=== PATIENT | male | born 1975 | race Caucasian/White ===

== ENCOUNTER 2017-11-02 23:02 | Inpatient (IN) ==
--- NOTE | 2017-11-02 23:31 | Emergency Department Note ---
Disposition Clinical Impression: Suicidal ideation Disposition: Still a Patient Condition: Fair Referrals: Lex Moreno MD [Primary Care Provider] - Forms: ED Satisfaction Letter Time of Disposition: 06:52 General Adult HPI - General Chief complaint: ED Psychiatric Symptoms Stated complaint: SI Time Seen by Provider: 11/02/17 23:04 Source: patient Mode of arrival: ambulatory Limitations: no limitations Nursing Notes Reviewed: Yes Vital Signs Reviewed: Yes - History of Present Illness HPI Narrative: Patient is a 42-year-old male with no pertinent past medical history of presents for evaluation of suicidal ideation. The patient states that 2 years ago he had a best friend that committed suicide with a shotgun and he had similar thoughts tonight. Patient is also a of or. He states that he is tried to deal with these motions over the past 2 years and they have overtaken of any wanted to take his life tonight. States that he sent his family members and friends goodbye letters and one of his friends called the police which came to his house and then he was brought in by squad. Patient states that he would like to seek help. He has not been seen by psychiatrist in the past. Denies any drug use or alcohol use. Denies any auditory or visual hallucinations. States he feels very anxious. Pain Scale: 0 - Related Data Previous Rx's Medication Instructions Recorded Naproxen [Naprosyn] 500 mg PO BID PRN #20 tablet 07/21/17 Allergies Allergy/AdvReac Type Severity Reaction Status Date / Time No Known Allergies Allergy Verified 11/02/17 23:05 All systems ED: reviewed and negative except as stated. Review of Systems: As Per HPI Constitutional: Denies: fever, chills Cardiovascular: Denies: chest pain, palpitations Respiratory: Denies: cough, dyspnea Gastrointestinal: Denies: abdominal pain, nausea, vomiting Genitourinary: Denies: urgency, dysuria Musculoskeletal: Denies: back pain, neck pain Integumentary: Denies: rash Neurological: Denies: headache, weakness, numbness, paresthesias, confusion Psychiatric: Reports: anxiety, depression, suicidal thoughts. Denies: homicidal thoughts, auditory hallucinations, visual hallucinations Past Medical History - Past Medical History Attestation: Yes The following information was validated with the patient. Medical history: Reports: hypertension Surgical history: Reports: appendectomy, cholecystectomy, orthopedic, other Psychiatric history: Reports: prior suicide attempt - Social History Smoking Status: Never smoker Smokeless Tobacco Status: Yes Alcohol use: Reports: none Drug use: Reports: none Physical Exam CONSTITUTIONAL: Alert and oriented X3, well-nourished. Patient is tearful on exam. Speaks in full sentences. HEAD: Normocephalic; atraumatic. EYES: PERRL, no scleral icterus. NOSE: The nose is normal in appearance without rhinorrhea RESP: Normal chest excursion with respiration; breath sounds clear and equal bilaterally; no wheezes, rhonchi, or rales CARD: Regular rhythm, without murmurs, rub or gallop ABD: Non-distended; non-tender, soft,without rigidity, rebound or guarding SKIN: Normal for age and race; warm and dry; no apparent lesions PSYCH: Patient is anxious on exam, tearful. Admits to SI with plan. Denies HI. Denies auditory or visual hallucinations. Normal affect. - General General appearance: alert Course Course Narrative: Patient will undergo medical clearance for evaluation by psychiatry. He stable at this time. - Reevaluation(s) Reevaluation #1: Patient's alcohol level was too high for medical clearance for psychiatric evaluation at this time. Patient is resting comfortably in his room. We will recheck his L Manoj level at 5:00 AM. Once the level is below 80, psychiatry will see him. Time: 02:13 Reevaluation #2: Repeat alcohol was less than 80. Patient to be seen by 1A at this time. Time: 06:39 Vital Signs Temperature 97.6 F 11/02/17 23:03 Pulse Rate 84 11/02/17 23:03 Respiratory Rate 16 11/02/17 23:03 Blood Pressure 134/83 11/02/17 23:03 O2 Sat by Pulse Oximetry 95 11/02/17 23:03 Temperature 97.5 F L 11/03/17 03:09 Pulse Rate 87 11/03/17 03:09 Respiratory Rate 18 11/02/17 23:20 Blood Pressure 114/71 11/03/17 03:09 O2 Sat by Pulse Oximetry 99 11/03/17 03:09 Oxygen Delivery Oxygen Delivery Room Air Medical Decision Making - Medical Records Medical records reviewed: Yes I reviewed the patient's medical records. - Lab Data Result diagrams: 11/02/17 23:32 11/02/17 23:32 Lab Results 11/02/17 11/02/17 11/02/17 Range/Units 23:32 23:32 23:46 WBC 8.0 (4.3-11.1) K/mcL RBC 5.14 (4.19-5.50) M/mcL Hgb 16.7 (12.9-16.9) g/dL Hct 46.0 (37.5-50.1) % MCV 89.5 (83.0-100.0) fL MCH 32.5 (28.0-33.3) pg MCHC 36.3 H (31.6-35.5) g/dL RDW 12.2 (11.5-14.5) % Plt Count 240 (140-400) K/mcL MPV 9.8 (9.4-12.4) fL Immature Gran % 0.4 (0-4) % Seg Neutrophils % 51.4 % Lymphocytes % 39.0 % Monocytes % 4.6 % Eosinophils % 3.7 % Basophils % 0.9 % Neutrophils # 4.1 (1.6-8.9) K/mcL Lymphocytes # 3.1 (0.6-4.6) K/mcL Monocytes # 0.4 (0.0-1.3) K/mcL Eosinophils # 0.3 (0.0-0.6) K/mcL Basophils # 0.1 (0.0-0.2) K/mcL Sodium 140 (136-145) mEq/L Potassium 4.1 (3.5-5.1) mEq/L Chloride 106 (98-107) mEq/L Carbon Dioxide 23 (23-29) mEq/L BUN 12 (6-20) mg/dL Creatinine 1.23 (0.70-1.30) mg/dL Est GFR ( Amer) > 60 (> 60) Est GFR (Non-Af Amer) > 60 (> 60) BUN/Creatinine Ratio 10 (6-26) Glucose 276 H (70-105) mg/dL Calculated Osmolality 300 (280-300) Calcium 8.9 (8.6-10.3) mg/dL Urine Color (Yellow) Urine Clarity (Clear) Urine pH (5.0-8.0) pH Units Ur Specific [place] (1.010-1.025) Urine Protein (Neg-Trace) mg/dL Urine Glucose (UA) (Normal) mg/dL Urine Ketones (Negative) mg/dL Urine Blood (Negative) Urine Nitrite (Negative) Urine Bilirubin (Negative) Urine Urobilinogen (Normal) mg/dL Ur Leukocyte Esterase (Negative) Salicylates < 2.5 L (15.0-30.0) mg/dL Urine Opiates Screen Negative (Ajrggf=307) ng/mL Acetaminophen < 10 L (10-20) mcg/mL Ur Barbiturates Screen Negative (Trwocx=403) ng/mL Ur Phencyclidine Scrn Negative (Cutoff=25) ng/mL Ur Amphetamines Screen Negative (Zfixlo=0992) ng/mL U Benzodiazepines Scrn Negative (Efdwec=860) ng/mL Urine Cocaine Screen Negative (Cutoff= 300) ng/mL U Marijuana (THC) Screen Negative (Cutoff = 50) ng/mL Ur Drug Screen Interp See Below Ethyl Alcohol 189 H (Less than 10) mg/dL 11/02/17 11/03/17 Range/Units 23:50 05:52 WBC (4.3-11.1) K/mcL RBC (4.19-5.50) M/mcL Hgb (12.9-16.9) g/dL Hct (37.5-50.1) % MCV (83.0-100.0) fL MCH (28.0-33.3) pg MCHC (31.6-35.5) g/dL RDW (11.5-14.5) % Plt Count (140-400) K/mcL MPV (9.4-12.4) fL Immature Gran % (0-4) % Seg Neutrophils % % Lymphocytes % % Monocytes % % Eosinophils % % Basophils % % Neutrophils # (1.6-8.9) K/mcL Lymphocytes # (0.6-4.6) K/mcL Monocytes # (0.0-1.3) K/mcL Eosinophils # (0.0-0.6) K/mcL Basophils # (0.0-0.2) K/mcL Sodium (136-145) mEq/L Potassium (3.5-5.1) mEq/L Chloride (98-107) mEq/L Carbon Dioxide (23-29) mEq/L BUN (6-20) mg/dL Creatinine (0.70-1.30) mg/dL Est GFR ( Amer) (> 60) Est GFR (Non-Af Amer) (> 60) BUN/Creatinine Ratio (6-26) Glucose (70-105) mg/dL Calculated Osmolality (280-300) Calcium (8.6-10.3) mg/dL Urine Color Yellow (Yellow) Urine Clarity Clear (Clear) Urine pH 5.5 (5.0-8.0) pH Units Ur Specific [place] 1.026 H (1.010-1.025) Urine Protein Negative (Neg-Trace) mg/dL Urine Glucose (UA) >=1000 H (Normal) mg/dL Urine Ketones 15 H (Negative) mg/dL Urine Blood Negative (Negative) Urine Nitrite Negative (Negative) Urine Bilirubin Negative (Negative) Urine Urobilinogen Normal (Normal) mg/dL Ur Leukocyte Esterase Negative (Negative) Salicylates (15.0-30.0) mg/dL Urine Opiates Screen (Zlthru=518) ng/mL Acetaminophen (10-20) mcg/mL Ur Barbiturates Screen (Ttumxo=391) ng/mL Ur Phencyclidine Scrn (Cutoff=25) ng/mL Ur Amphetamines Screen (Gelitm=0536) ng/mL U Benzodiazepines Scrn (Oyhlet=610) ng/mL Urine Cocaine Screen (Cutoff= 300) ng/mL U Marijuana (THC) Screen (Cutoff = 50) ng/mL Ur Drug Screen Interp Ethyl Alcohol 45 H (Less than 10) mg/dL S.B.A.R. - S.B.A.R. Situation: Demographics, MOA Background: Presenting Complaint, Relevant PMH, Meds, & Allergies Assessment: Vital Signs, Course and respsone to treatment, Exam Concerns, Patient/Family Expectation, Pertinant Lab Results, Outstanding Labs Recommendation: Barrier(s) to disposition, Recommendation based on pending studies, treatments, or consults S.B.A.R. Report Given to: Gus S.B.A.RRyan Repor Time: 06:52
[2017-11-02] MEDS ORDERED: *HR* LORazepam 1 MG TABLET PO ONE (23:55)
[2017-11-03 00:02] LABS: Acetaminophen < 10 mcg/mL (10-20); BUN/Creatinine Ratio 10 (6-26); Blood Urea Nitrogen 12 mg/dL (6-20); Calcium 8.9 mg/dL (8.6-10.3); Carbon Dioxide 23 mEq/L (23-29); Chloride 106 mEq/L (98-107); Ethanol 189 mg/dL (Less than 10); Glucose 276 mg/dL (70-105); Osmolality,Calculated 300 (280-300); Potassium 4.1 mEq/L (3.5-5.1); Salicylate < 2.5 mg/dL (15.0-30.0); Sodium 140 mEq/L (136-145); eGFR For African Americans > 60 (> 60); eGFR For Non-African Americans > 60 (> 60)
[2017-11-03 00:11] LABS: Amphetamine Screen,Urine Negative ng/mL (Cutoff=1000); Barbiturate Screen,Urine Negative ng/mL (Cutoff=200); Benzodiazepines Screen,Urine Negative ng/mL (Cutoff=200); Cannabinoid Screen,Urine Negative ng/mL (Cutoff = 50); Cocaine Screen,Urine Negative ng/mL (Cutoff= 300); Opiate Screen,Urine Negative ng/mL (Cutoff=300); Phencyclidine Screen,Urine Negative ng/mL (Cutoff=25)
[2017-11-03 00:14] LABS: Bilirubin,Urine Negative (Negative); Blood,Urine Negative (Negative); Clarity,Urine Clear (Clear); Color,Urine Yellow (Yellow); Glucose,Urine (UA) >=1000 mg/dL (Normal); Ketones,Urine 15 mg/dL (Negative); Leukocyte Esterase,Urine Negative (Negative); Nitrite,Urine Negative (Negative); PH,Urine 5.5 pH Units (5.0-8.0); Protein,Urine Negative (Neg-Trace); Specific Gravity,Urine 1.026 (1.010-1.025); Urobilinogen,Urine Normal (Normal)
[2017-11-03 00:21] LABS: Basophils # 0.1 K/mcL (0.0-0.2); Basophils % 0.9 %; Eosinophils # 0.3 K/mcL (0.0-0.6); Eosinophils % 3.7 %; Hemoglobin 16.7 g/dL (12.9-16.9); Immature Granulocytes % 0.4 % (0-4); Lymphocytes # 3.1 K/mcL (0.6-4.6); Mean Corpuscular HGB Conc 36.3 g/dL (31.6-35.5); Mean Corpuscular Hemoglobin 32.5 pg (28.0-33.3); Mean Corpuscular Volume 89.5 fL (83.0-100.0); Mean Platelet Volume 9.8 fL (9.4-12.4); Monocytes # 0.4 K/mcL (0.0-1.3); Monocytes % 4.6 %; Neutrophils # 4.1 K/mcL (1.6-8.9); Platelet Count 240 K/mcL (140-400); Red Blood Count 5.14 M/mcL (4.19-5.50); Red Cell Distribution Width 12.2 % (11.5-14.5); Segmented Neutrophils % 51.4 %
--- NOTE | 2017-11-03 03:30 | Emergency Department Note ---
Disposition Clinical Impression: Suicidal ideation Alcohol intoxication Qualifiers: Complication of substance-induced condition: uncomplicated Qualified Code(s): F10.920 - Alcohol use, unspecified with intoxication, uncomplicated Disposition: Still a Patient Condition: Fair General Adult HPI - General Chief complaint: ED Psychiatric Symptoms Stated complaint: SI Time Seen by Provider: 11/02/17 23:04 Source: patient Mode of arrival: ambulatory Limitations: no limitations Nursing Notes Reviewed: Yes Vital Signs Reviewed: Yes - History of Present Illness Pain Scale: 0 - Related Data Home Medications Medication Instructions Recorded Confirmed No Known Home Drugs 11/03/17 11/03/17 Allergies Allergy/AdvReac Type Severity Reaction Status Date / Time No Known Allergies Allergy Verified 11/02/17 23:05 Constitutional: Denies: fever, chills Cardiovascular: Denies: chest pain, palpitations Respiratory: Denies: cough, dyspnea Gastrointestinal: Denies: abdominal pain, nausea, vomiting Genitourinary: Denies: urgency, dysuria Musculoskeletal: Denies: back pain, neck pain Integumentary: Denies: rash Neurological: Denies: headache, weakness, numbness, paresthesias, confusion Psychiatric: Reports: anxiety, depression, suicidal thoughts. Denies: homicidal thoughts, auditory hallucinations, visual hallucinations Past Medical History - Past Medical History Medical history: Reports: hypertension Surgical history: Reports: appendectomy, cholecystectomy, orthopedic, other Psychiatric history: Reports: prior suicide attempt - Social History Smoking Status: Never smoker Smokeless Tobacco Status: Yes Alcohol use: Reports: none Drug use: Reports: none Physical Exam - General Limitations: no limitations General appearance: alert Course Vital Signs Temperature 97.6 F 11/02/17 23:03 Pulse Rate 84 11/02/17 23:03 Respiratory Rate 16 11/02/17 23:03 Blood Pressure 134/83 11/02/17 23:03 O2 Sat by Pulse Oximetry 95 11/02/17 23:03 Temperature 97.5 F L 11/03/17 03:09 Pulse Rate 87 11/03/17 03:09 Respiratory Rate 18 11/02/17 23:20 Blood Pressure 114/71 11/03/17 03:09 O2 Sat by Pulse Oximetry 99 11/03/17 03:09 Oxygen Delivery Oxygen Delivery Room Air Medical Decision Making - Lab Data Result diagrams: 11/02/17 23:32 11/02/17 23:32 Lab Results 11/02/17 11/02/17 11/02/17 Range/Units 23:32 23:32 23:46 WBC 8.0 (4.3-11.1) K/mcL RBC 5.14 (4.19-5.50) M/mcL Hgb 16.7 (12.9-16.9) g/dL Hct 46.0 (37.5-50.1) % MCV 89.5 (83.0-100.0) fL MCH 32.5 (28.0-33.3) pg MCHC 36.3 H (31.6-35.5) g/dL RDW 12.2 (11.5-14.5) % Plt Count 240 (140-400) K/mcL MPV 9.8 (9.4-12.4) fL Immature Gran % 0.4 (0-4) % Seg Neutrophils % 51.4 % Lymphocytes % 39.0 % Monocytes % 4.6 % Eosinophils % 3.7 % Basophils % 0.9 % Neutrophils # 4.1 (1.6-8.9) K/mcL Lymphocytes # 3.1 (0.6-4.6) K/mcL Monocytes # 0.4 (0.0-1.3) K/mcL Eosinophils # 0.3 (0.0-0.6) K/mcL Basophils # 0.1 (0.0-0.2) K/mcL Sodium 140 (136-145) mEq/L Potassium 4.1 (3.5-5.1) mEq/L Chloride 106 (98-107) mEq/L Carbon Dioxide 23 (23-29) mEq/L BUN 12 (6-20) mg/dL Creatinine 1.23 (0.70-1.30) mg/dL Est GFR ( Amer) > 60 (> 60) Est GFR (Non-Af Amer) > 60 (> 60) BUN/Creatinine Ratio 10 (6-26) Glucose 276 H (70-105) mg/dL POC Glucose (70-99) mg/dL Calculated Osmolality 300 (280-300) Calcium 8.9 (8.6-10.3) mg/dL Urine Color (Yellow) Urine Clarity (Clear) Urine pH (5.0-8.0) pH Units Ur Specific [place] (1.010-1.025) Urine Protein (Neg-Trace) mg/dL Urine Glucose (UA) (Normal) mg/dL Urine Ketones (Negative) mg/dL Urine Blood (Negative) Urine Nitrite (Negative) Urine Bilirubin (Negative) Urine Urobilinogen (Normal) mg/dL Ur Leukocyte Esterase (Negative) Salicylates < 2.5 L (15.0-30.0) mg/dL Urine Opiates Screen Negative (Rvletn=329) ng/mL Acetaminophen < 10 L (10-20) mcg/mL Ur Barbiturates Screen Negative (Ljjrgu=032) ng/mL Ur Phencyclidine Scrn Negative (Cutoff=25) ng/mL Ur Amphetamines Screen Negative (Fmgchq=8570) ng/mL U Benzodiazepines Scrn Negative (Jtezxu=419) ng/mL Urine Cocaine Screen Negative (Cutoff= 300) ng/mL U Marijuana (THC) Screen Negative (Cutoff = 50) ng/mL Ur Drug Screen Interp See Below Ethyl Alcohol 189 H (Less than 10) mg/dL 11/02/17 11/03/17 11/03/17 Range/Units 23:50 05:52 09:12 WBC (4.3-11.1) K/mcL RBC (4.19-5.50) M/mcL Hgb (12.9-16.9) g/dL Hct (37.5-50.1) % MCV (83.0-100.0) fL MCH (28.0-33.3) pg MCHC (31.6-35.5) g/dL RDW (11.5-14.5) % Plt Count (140-400) K/mcL MPV (9.4-12.4) fL Immature Gran % (0-4) % Seg Neutrophils % % Lymphocytes % % Monocytes % % Eosinophils % % Basophils % % Neutrophils # (1.6-8.9) K/mcL Lymphocytes # (0.6-4.6) K/mcL Monocytes # (0.0-1.3) K/mcL Eosinophils # (0.0-0.6) K/mcL Basophils # (0.0-0.2) K/mcL Sodium (136-145) mEq/L Potassium (3.5-5.1) mEq/L Chloride (98-107) mEq/L Carbon Dioxide (23-29) mEq/L BUN (6-20) mg/dL Creatinine (0.70-1.30) mg/dL Est GFR ( Amer) (> 60) Est GFR (Non-Af Amer) (> 60) BUN/Creatinine Ratio (6-26) Glucose (70-105) mg/dL POC Glucose 138 H (70-99) mg/dL Calculated Osmolality (280-300) Calcium (8.6-10.3) mg/dL Urine Color Yellow (Yellow) Urine Clarity Clear (Clear) Urine pH 5.5 (5.0-8.0) pH Units Ur Specific [place] 1.026 H (1.010-1.025) Urine Protein Negative (Neg-Trace) mg/dL Urine Glucose (UA) >=1000 H (Normal) mg/dL Urine Ketones 15 H (Negative) mg/dL Urine Blood Negative (Negative) Urine Nitrite Negative (Negative) Urine Bilirubin Negative (Negative) Urine Urobilinogen Normal (Normal) mg/dL Ur Leukocyte Esterase Negative (Negative) Salicylates (15.0-30.0) mg/dL Urine Opiates Screen (Jglwzd=342) ng/mL Acetaminophen (10-20) mcg/mL Ur Barbiturates Screen (Sulnri=890) ng/mL Ur Phencyclidine Scrn (Cutoff=25) ng/mL Ur Amphetamines Screen (Bxahyi=5405) ng/mL U Benzodiazepines Scrn (Xtyxla=927) ng/mL Urine Cocaine Screen (Cutoff= 300) ng/mL U Marijuana (THC) Screen (Cutoff = 50) ng/mL Ur Drug Screen Interp Ethyl Alcohol 45 H (Less than 10) mg/dL Attestation Statement - Attestation Attestation: I, Jose Alfredo Carrillo MD, personally evaluated this patient and discussed their management with the resident physician. I reviewed the resident's note and agree with the documented findings, medical decision making, and plan of care. 42-year-old male presents to the emergency department complaining of suicidal ideation. Patient states he has had intermittent suicidal thoughts in the past but it has become much worse recently and today he was considering killing himself with a gun. On examination patient is a well-developed well-nourished well-appearing male in no acute distress. He is alert and oriented 3. There is no cyanosis or diaphoresis. Breath sounds are clear and equal bilaterally. Heart regular rate and rhythm. Abdomen soft and nontender with normal bowel sounds. Labs reviewed. Urine tox screen negative. Alcohol 189. At shift change patient is signed out to the oncoming dayshift physician, Dr. Chi. Patient awaiting psychiatric evaluation and disposition.
--- NOTE | 2017-11-03 07:19 | Emergency Department Note ---
Disposition Clinical Impression: Suicidal ideation Disposition: Admitted As Inpatient Condition: Good General Adult HPI - General Chief complaint: ED Psychiatric Symptoms Stated complaint: SI Time Seen by Provider: 11/02/17 23:04 Source: patient Mode of arrival: ambulatory Limitations: no limitations Nursing Notes Reviewed: Yes Vital Signs Reviewed: Yes - History of Present Illness HPI Narrative: Refer to previous notes for history of present illness, physical exam, medical decision-making Pain Scale: 0 - Related Data Previous Rx's Medication Instructions Recorded Naproxen [Naprosyn] 500 mg PO BID PRN #20 tablet 07/21/17 Allergies Allergy/AdvReac Type Severity Reaction Status Date / Time No Known Allergies Allergy Verified 11/02/17 23:05 Constitutional: Denies: fever, chills Cardiovascular: Denies: chest pain, palpitations Respiratory: Denies: cough, dyspnea Gastrointestinal: Denies: abdominal pain, nausea, vomiting Genitourinary: Denies: urgency, dysuria Musculoskeletal: Denies: back pain, neck pain Integumentary: Denies: rash Neurological: Denies: headache, weakness, numbness, paresthesias, confusion Psychiatric: Reports: anxiety, depression, suicidal thoughts. Denies: homicidal thoughts, auditory hallucinations, visual hallucinations Past Medical History - Past Medical History Medical history: Reports: hypertension Surgical history: Reports: appendectomy, cholecystectomy, orthopedic, other Psychiatric history: Reports: prior suicide attempt - Social History Smoking Status: Never smoker Smokeless Tobacco Status: Yes Alcohol use: Reports: none Drug use: Reports: none Physical Exam - General Limitations: no limitations General appearance: alert Course Vital Signs Temperature 97.6 F 11/02/17 23:03 Pulse Rate 84 11/02/17 23:03 Respiratory Rate 16 11/02/17 23:03 Blood Pressure 134/83 11/02/17 23:03 O2 Sat by Pulse Oximetry 95 11/02/17 23:03 Temperature 97.5 F L 11/03/17 03:09 Pulse Rate 87 11/03/17 03:09 Respiratory Rate 18 11/02/17 23:20 Blood Pressure 114/71 11/03/17 03:09 O2 Sat by Pulse Oximetry 99 11/03/17 03:09 Oxygen Delivery Oxygen Delivery Room Air Medical Decision Making - MDM Narrative Medical decision making narrative: 42-year-old male presents emergency department for suicidal ideations. Patient was awaiting evaluation by her psychiatric team. After evaluation, they agreed to admit patient. Patient agrees with plan. Hemodynamically stable but appears to be anxious at time of admission. We will provide patient with Ativan. Vital Signs Temperature 97.6 F 11/02/17 23:03 Pulse Rate 84 11/02/17 23:03 Respiratory Rate 16 11/02/17 23:03 Blood Pressure 134/83 11/02/17 23:03 O2 Sat by Pulse Oximetry 95 11/02/17 23:03 Temperature 97.5 F L 11/03/17 03:09 Pulse Rate 87 11/03/17 03:09 Respiratory Rate 18 11/02/17 23:20 Blood Pressure 114/71 11/03/17 03:09 O2 Sat by Pulse Oximetry 99 11/03/17 03:09 Oxygen Delivery Oxygen Delivery Room Air - Lab Data Result diagrams: 11/02/17 23:32 11/02/17 23:32 Lab Results 11/02/17 11/02/17 11/02/17 Range/Units 23:32 23:32 23:46 WBC 8.0 (4.3-11.1) K/mcL RBC 5.14 (4.19-5.50) M/mcL Hgb 16.7 (12.9-16.9) g/dL Hct 46.0 (37.5-50.1) % MCV 89.5 (83.0-100.0) fL MCH 32.5 (28.0-33.3) pg MCHC 36.3 H (31.6-35.5) g/dL RDW 12.2 (11.5-14.5) % Plt Count 240 (140-400) K/mcL MPV 9.8 (9.4-12.4) fL Immature Gran % 0.4 (0-4) % Seg Neutrophils % 51.4 % Lymphocytes % 39.0 % Monocytes % 4.6 % Eosinophils % 3.7 % Basophils % 0.9 % Neutrophils # 4.1 (1.6-8.9) K/mcL Lymphocytes # 3.1 (0.6-4.6) K/mcL Monocytes # 0.4 (0.0-1.3) K/mcL Eosinophils # 0.3 (0.0-0.6) K/mcL Basophils # 0.1 (0.0-0.2) K/mcL Sodium 140 (136-145) mEq/L Potassium 4.1 (3.5-5.1) mEq/L Chloride 106 (98-107) mEq/L Carbon Dioxide 23 (23-29) mEq/L BUN 12 (6-20) mg/dL Creatinine 1.23 (0.70-1.30) mg/dL Est GFR ( Amer) > 60 (> 60) Est GFR (Non-Af Amer) > 60 (> 60) BUN/Creatinine Ratio 10 (6-26) Glucose 276 H (70-105) mg/dL Calculated Osmolality 300 (280-300) Calcium 8.9 (8.6-10.3) mg/dL Urine Color (Yellow) Urine Clarity (Clear) Urine pH (5.0-8.0) pH Units Ur Specific [place] (1.010-1.025) Urine Protein (Neg-Trace) mg/dL Urine Glucose (UA) (Normal) mg/dL Urine Ketones (Negative) mg/dL Urine Blood (Negative) Urine Nitrite (Negative) Urine Bilirubin (Negative) Urine Urobilinogen (Normal) mg/dL Ur Leukocyte Esterase (Negative) Salicylates < 2.5 L (15.0-30.0) mg/dL Urine Opiates Screen Negative (Ehdnfe=418) ng/mL Acetaminophen < 10 L (10-20) mcg/mL Ur Barbiturates Screen Negative (Wtnlmq=311) ng/mL Ur Phencyclidine Scrn Negative (Cutoff=25) ng/mL Ur Amphetamines Screen Negative (Tvayao=3800) ng/mL U Benzodiazepines Scrn Negative (Yomqoo=492) ng/mL Urine Cocaine Screen Negative (Cutoff= 300) ng/mL U Marijuana (THC) Screen Negative (Cutoff = 50) ng/mL Ur Drug Screen Interp See Below Ethyl Alcohol 189 H (Less than 10) mg/dL 11/02/17 11/03/17 Range/Units 23:50 05:52 WBC (4.3-11.1) K/mcL RBC (4.19-5.50) M/mcL Hgb (12.9-16.9) g/dL Hct (37.5-50.1) % MCV (83.0-100.0) fL MCH (28.0-33.3) pg MCHC (31.6-35.5) g/dL RDW (11.5-14.5) % Plt Count (140-400) K/mcL MPV (9.4-12.4) fL Immature Gran % (0-4) % Seg Neutrophils % % Lymphocytes % % Monocytes % % Eosinophils % % Basophils % % Neutrophils # (1.6-8.9) K/mcL Lymphocytes # (0.6-4.6) K/mcL Monocytes # (0.0-1.3) K/mcL Eosinophils # (0.0-0.6) K/mcL Basophils # (0.0-0.2) K/mcL Sodium (136-145) mEq/L Potassium (3.5-5.1) mEq/L Chloride (98-107) mEq/L Carbon Dioxide (23-29) mEq/L BUN (6-20) mg/dL Creatinine (0.70-1.30) mg/dL Est GFR ( Amer) (> 60) Est GFR (Non-Af Amer) (> 60) BUN/Creatinine Ratio (6-26) Glucose (70-105) mg/dL Calculated Osmolality (280-300) Calcium (8.6-10.3) mg/dL Urine Color Yellow (Yellow) Urine Clarity Clear (Clear) Urine pH 5.5 (5.0-8.0) pH Units Ur Specific [place] 1.026 H (1.010-1.025) Urine Protein Negative (Neg-Trace) mg/dL Urine Glucose (UA) >=1000 H (Normal) mg/dL Urine Ketones 15 H (Negative) mg/dL Urine Blood Negative (Negative) Urine Nitrite Negative (Negative) Urine Bilirubin Negative (Negative) Urine Urobilinogen Normal (Normal) mg/dL Ur Leukocyte Esterase Negative (Negative) Salicylates (15.0-30.0) mg/dL Urine Opiates Screen (Uhoddk=086) ng/mL Acetaminophen (10-20) mcg/mL Ur Barbiturates Screen (Ebdvvd=773) ng/mL Ur Phencyclidine Scrn (Cutoff=25) ng/mL Ur Amphetamines Screen (Yieebp=0263) ng/mL U Benzodiazepines Scrn (Qxblce=179) ng/mL Urine Cocaine Screen (Cutoff= 300) ng/mL U Marijuana (THC) Screen (Cutoff = 50) ng/mL Ur Drug Screen Interp Ethyl Alcohol 45 H (Less than 10) mg/dL
--- NOTE | 2017-11-03 07:28 | Emergency Department Note ---
Disposition Clinical Impression: Suicidal ideation Disposition: Still a Patient Condition: Fair Referrals: Lex Moreno MD [Primary Care Provider] - Forms: ED Satisfaction Letter General Adult HPI - General Chief complaint: ED Psychiatric Symptoms Stated complaint: SI Time Seen by Provider: 11/02/17 23:04 Source: patient Mode of arrival: ambulatory Limitations: no limitations - History of Present Illness Pain Scale: 0 - Related Data Previous Rx's Medication Instructions Recorded Naproxen [Naprosyn] 500 mg PO BID PRN #20 tablet 07/21/17 Allergies Allergy/AdvReac Type Severity Reaction Status Date / Time No Known Allergies Allergy Verified 11/02/17 23:05 Constitutional: Denies: fever, chills Cardiovascular: Denies: chest pain, palpitations Respiratory: Denies: cough, dyspnea Gastrointestinal: Denies: abdominal pain, nausea, vomiting Genitourinary: Denies: urgency, dysuria Musculoskeletal: Denies: back pain, neck pain Integumentary: Denies: rash Neurological: Denies: headache, weakness, numbness, paresthesias, confusion Psychiatric: Reports: anxiety, depression, suicidal thoughts. Denies: homicidal thoughts, auditory hallucinations, visual hallucinations Past Medical History - Past Medical History Medical history: Reports: hypertension Surgical history: Reports: appendectomy, cholecystectomy, orthopedic, other Psychiatric history: Reports: prior suicide attempt - Social History Smoking Status: Never smoker Smokeless Tobacco Status: Yes Alcohol use: Reports: none Drug use: Reports: none Physical Exam - General Limitations: no limitations General appearance: alert Course - Reevaluation(s) Reevaluation #1: Attestation note I examined this patient and my medical decision-making was reviewed with the emergency medicine resident. I agree with the documented findings, disposition and treatment plan as described except to the extent set forth below. Patient seen with emergency medicine resident Dr. Asael Herrera, Please see a copy of his note for details of the H&P, ED evaluation, management and disposition. I have independently evaluated the patient and confirmed appropriate portions of the history and physical exam. Briefly: 42-year-old male history of service but no care established with the [facility] signed out by the departing evening team of Dr. Carrillo and Dr. sanderson. Please see copy details that evaluation and management. Patient signed out at 7 AM. Suicidal ideations with plan. Patient is cooperative and comfortable resting comfortably breakfast tray ordered. Patient is awaiting mental health evaluation from [place]. Disposition pending Time: 07:27 Vital Signs Temperature 97.6 F 11/02/17 23:03 Pulse Rate 84 11/02/17 23:03 Respiratory Rate 16 11/02/17 23:03 Blood Pressure 134/83 11/02/17 23:03 O2 Sat by Pulse Oximetry 95 11/02/17 23:03 Temperature 97.5 F L 11/03/17 03:09 Pulse Rate 87 11/03/17 03:09 Respiratory Rate 18 11/02/17 23:20 Blood Pressure 114/71 11/03/17 03:09 O2 Sat by Pulse Oximetry 99 11/03/17 03:09 Oxygen Delivery Oxygen Delivery Room Air Medical Decision Making - Lab Data Result diagrams: 11/02/17 23:32 11/02/17 23:32 Lab Results 11/02/17 11/02/17 11/02/17 Range/Units 23:32 23:32 23:46 WBC 8.0 (4.3-11.1) K/mcL RBC 5.14 (4.19-5.50) M/mcL Hgb 16.7 (12.9-16.9) g/dL Hct 46.0 (37.5-50.1) % MCV 89.5 (83.0-100.0) fL MCH 32.5 (28.0-33.3) pg MCHC 36.3 H (31.6-35.5) g/dL RDW 12.2 (11.5-14.5) % Plt Count 240 (140-400) K/mcL MPV 9.8 (9.4-12.4) fL Immature Gran % 0.4 (0-4) % Seg Neutrophils % 51.4 % Lymphocytes % 39.0 % Monocytes % 4.6 % Eosinophils % 3.7 % Basophils % 0.9 % Neutrophils # 4.1 (1.6-8.9) K/mcL Lymphocytes # 3.1 (0.6-4.6) K/mcL Monocytes # 0.4 (0.0-1.3) K/mcL Eosinophils # 0.3 (0.0-0.6) K/mcL Basophils # 0.1 (0.0-0.2) K/mcL Sodium 140 (136-145) mEq/L Potassium 4.1 (3.5-5.1) mEq/L Chloride 106 (98-107) mEq/L Carbon Dioxide 23 (23-29) mEq/L BUN 12 (6-20) mg/dL Creatinine 1.23 (0.70-1.30) mg/dL Est GFR ( Amer) > 60 (> 60) Est GFR (Non-Af Amer) > 60 (> 60) BUN/Creatinine Ratio 10 (6-26) Glucose 276 H (70-105) mg/dL Calculated Osmolality 300 (280-300) Calcium 8.9 (8.6-10.3) mg/dL Urine Color (Yellow) Urine Clarity (Clear) Urine pH (5.0-8.0) pH Units Ur Specific [place] (1.010-1.025) Urine Protein (Neg-Trace) mg/dL Urine Glucose (UA) (Normal) mg/dL Urine Ketones (Negative) mg/dL Urine Blood (Negative) Urine Nitrite (Negative) Urine Bilirubin (Negative) Urine Urobilinogen (Normal) mg/dL Ur Leukocyte Esterase (Negative) Salicylates < 2.5 L (15.0-30.0) mg/dL Urine Opiates Screen Negative (Exbrmd=716) ng/mL Acetaminophen < 10 L (10-20) mcg/mL Ur Barbiturates Screen Negative (Cdcdmq=743) ng/mL Ur Phencyclidine Scrn Negative (Cutoff=25) ng/mL Ur Amphetamines Screen Negative (Jkyoob=4812) ng/mL U Benzodiazepines Scrn Negative (Qdvtyl=841) ng/mL Urine Cocaine Screen Negative (Cutoff= 300) ng/mL U Marijuana (THC) Screen Negative (Cutoff = 50) ng/mL Ur Drug Screen Interp See Below Ethyl Alcohol 189 H (Less than 10) mg/dL 11/02/17 11/03/17 Range/Units 23:50 05:52 WBC (4.3-11.1) K/mcL RBC (4.19-5.50) M/mcL Hgb (12.9-16.9) g/dL Hct (37.5-50.1) % MCV (83.0-100.0) fL MCH (28.0-33.3) pg MCHC (31.6-35.5) g/dL RDW (11.5-14.5) % Plt Count (140-400) K/mcL MPV (9.4-12.4) fL Immature Gran % (0-4) % Seg Neutrophils % % Lymphocytes % % Monocytes % % Eosinophils % % Basophils % % Neutrophils # (1.6-8.9) K/mcL Lymphocytes # (0.6-4.6) K/mcL Monocytes # (0.0-1.3) K/mcL Eosinophils # (0.0-0.6) K/mcL Basophils # (0.0-0.2) K/mcL Sodium (136-145) mEq/L Potassium (3.5-5.1) mEq/L Chloride (98-107) mEq/L Carbon Dioxide (23-29) mEq/L BUN (6-20) mg/dL Creatinine (0.70-1.30) mg/dL Est GFR ( Amer) (> 60) Est GFR (Non-Af Amer) (> 60) BUN/Creatinine Ratio (6-26) Glucose (70-105) mg/dL Calculated Osmolality (280-300) Calcium (8.6-10.3) mg/dL Urine Color Yellow (Yellow) Urine Clarity Clear (Clear) Urine pH 5.5 (5.0-8.0) pH Units Ur Specific [place] 1.026 H (1.010-1.025) Urine Protein Negative (Neg-Trace) mg/dL Urine Glucose (UA) >=1000 H (Normal) mg/dL Urine Ketones 15 H (Negative) mg/dL Urine Blood Negative (Negative) Urine Nitrite Negative (Negative) Urine Bilirubin Negative (Negative) Urine Urobilinogen Normal (Normal) mg/dL Ur Leukocyte Esterase Negative (Negative) Salicylates (15.0-30.0) mg/dL Urine Opiates Screen (Eivcnw=331) ng/mL Acetaminophen (10-20) mcg/mL Ur Barbiturates Screen (Krumui=481) ng/mL Ur Phencyclidine Scrn (Cutoff=25) ng/mL Ur Amphetamines Screen (Ifzgqh=0581) ng/mL U Benzodiazepines Scrn (Jjbzqy=615) ng/mL Urine Cocaine Screen (Cutoff= 300) ng/mL U Marijuana (THC) Screen (Cutoff = 50) ng/mL Ur Drug Screen Interp Ethyl Alcohol 45 H (Less than 10) mg/dL
[2017-11-03] MEDS ORDERED: *HR* LORazepam 1 MG TABLET PO ONE (07:43)
[2017-11-03] MEDS ORDERED: Acetaminophen 325 MG TABLET PO PRN (10:32)
[2017-11-03] MEDS ORDERED: MOM Conc 10 ML UD.LIQ PO PRN (10:32)
[2017-11-03] MEDS ORDERED: Haloperidol Lactate 5 MG/ML VIAL IM PRN (10:32)
[2017-11-03] MEDS ORDERED: *HR* LORazepam 1 MG TABLET PO PRN (10:32)
[2017-11-03] MEDS ORDERED: traZODone 50 MG TABLET PO PRN (10:32)
[2017-11-03] MEDS ORDERED: hydrOXYzine pamoate 25 MG CAPSULE PO PRN (10:32)
[2017-11-03] MEDS ORDERED: Mag Hydrox/Al Hydrox/Simeth 30 ML UDC PO PRN (10:32)
[2017-11-03] MEDS ORDERED: *HR* LORazepam 2 MG/ML VIAL IM PRN (10:32)
[2017-11-03] MEDS ORDERED: Ibuprofen 400 MG TABLET PO PRN (14:03)
--- NOTE | 2017-11-03 14:33 | Psychiatry History & Physical ---
Date of Encounter: 11/03/17 Time of Encounter: 14:00 History of Present Illness Patient Stated Chief Complaint: since Ryley Passed I havent been able to shake it Medicare Admission Attestation: For traditional Medicare patients the provided hospital inpatient services are reasonable and necessary and in the case of services not specified as inpatient -only under 42 CFR 419.22 (n), that they are appropriately provided as inpatient services in accordance 42 CFR 412.3. For Critical Access Hospital the patient may reasonably be expected to be discharged or transferred to a hospital within 96 hours after admission to the Critical Access Hospital. Admitted From: Emergency Dept Plans for Post Hospital Care: Home History of Present Illness: Mr. Taveras is a 42 year old male The patient is a 42-year-old engaged white male. He lives in [facility]. The patient presented to the emergency room with suicidal ideation he did not have a gun but had access to gun and was contemplating suicide. Chief complaint since alia past have not been able to shake it History of present illness. The patient is upset that his cousin Ryley by shooting himself. It is important to note that the patient's maternal side of the family has Marianna's disease and that Ryley was diagnosed with Marianna' s and took a shotgun and shot himself. This occurred at a time when the patient was in getting evaluated for a TIA that was felt to be due to high blood pressure. The patient is the executor of Ryley's will. This is causing great dissension always had to deal with Ryley's ex- and for 2 years he has been dealing with the thoughts and images associated with his cousin and best friend. The patient started self-medicating with alcohol. His history of alcohol includes the use of beer on the weekends and shot of whiskey during the week. This may occur every day with daily drinking but no significant withdrawal. No significant job family or other facts. 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 He has his FMLA. The patient had a family doctor Dr. Guajardo who all went to work in the correctional system he now has no primary care physician. The patient's psychiatric history can be found in the 2009 discharge summary. That time the patient was felt to have significant trouble with alcohol dependency and the patient has been to alcohol rehabilitation in this period of time. He has had a two-year period of sobriety but did not use AA and NA and Antiabuse or naltrexone or Campral. The patient has been treated with a variety of antidepressants but no facts after the 2009 discharge he left and did not follow up feeling that the medicines were not helpful. The patient's primary symptoms include not sleeping increased sensitivity triggering from certain things difficulty with attention and concentration. He has been avoiding his 2-year-old daughter he is engaged to his fiance and she is noted mood changes. The patient has a history of obsessive-compulsive thinking including cleaning counting checking ordering arranging obsession with right and wrong. The patient's been told that he has loud snoring with periods of apnea these of been reported by his fiance. The patient has no prior history of attempted suicide. Past medical history: Surgeries appendix adenoids, left shoulder screw placed in an adult. Illnesses none current was evaluated for TIA that not placed on aspirin and Plavix blood sugar was 286 on admission 136: Accu-Chek. NKDA no medicines Family history patient's father had Guillain-[place] syndrome. The patient's aunt has MS. The patient has 2 maternal aunts and one brother with Manjeet' s chorea. They . Ryley was the son of one of the sisters and was diagnosed with Manjeet's chorea killed himself. There is an aunt with an unspecified neurologic disorder. He reports no alcohol or drug abuse in the family. Social history the patient's been 2. He completed high school he entered the and went from [id number] he served his anemia and they have a corpse. He served in the [employer] in on [place] and [place]. 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 The review of systems is significant for the sleep disorder and some forgetfulness Past Med Surg Social Fam HX - Past Medical History Medical history: no medical history, hypertension, TIA - Past Psychiatric History Psychiatric history: Reports: depression, previous psychiatric hospitalization Family psychiatric history: Yes Family History of Suicide: Completed - Past Surgical History Surgical History: appendectomy, cancer surgery, cholecystectomy, orthopedic, other - Social History Smoking Status: Never smoker Smokeless Tobacco Status: Yes Alcohol use: none Drug use: none Occupational status: employed Current living situation: Home - Independent Activity Level: Independent ambulation Recent Out of Country Travel Within the Last 8 Weeks: No Exposure or Possible Exposure to Illness During Travel: No Medications & Allergies No Known Home Drugs 11/03/17 [History] 3 Allergy/AdvReac Type Severity Reaction Status Date / Time No Known Allergies Allergy Verified 11/02/17 23:05 Review of Systems Constitutional: Denies: fever, chills, weakness, weight change Eyes: Denies: eye pain, vision change Ears, Nose, Throat: Denies: ear pain, throat pain, dental pain, hearing loss, congestion Cardiovascular: Denies: chest pain, palpitations, dyspnea on exertion Respiratory: Denies: cough, dyspnea, wheezes Gastrointestinal: Denies: abdominal pain, nausea, vomiting, diarrhea, constipation Genitourinary male: Denies: urgency, dysuria, frequency, genital lesions Musculoskeletal: Denies: joint swelling, joint pain Integumentary: Denies: rash, lesions, pruritus Neurological: Denies: headache, weakness, numbness, memory loss Psychiatric: Reports: depression, anxiety, abnormal sleep pattern, suicidal ideation, memory loss, irritability Endocrine: Denies: fatigue, heat or cold intolerance Hematologic/Lymphatic: Denies: easy bruising, lymphadenopathy Allergic/Immunologic: Denies: urticaria, itchy eyes Exam - HEENT Head exam IM: Present: atraumatic Eye exam IM: Present: EOMI, normal appearance, PERRL ENT exam IM: Present: normal exam - Neurological Neurological exam: Present: CN II-XII intact - Respiratory Respiratory exam IM: Present: CTAB - GI/Abdominal GI/Abdominal exam IM: Present: normal bowel sounds, soft. Absent: tenderness - Extremities Extremities exam IM: Present: full ROM - Skin Skin exam IM: Present: dry, warm - Constitutional Vitals: Temp Pulse Resp BP Pulse Ox 97.5 F L 87 18 114/71 99 11/03/17 03:09 11/03/17 03:09 11/02/17 23:20 11/03/17 03:09 11/03/17 03:09 General appearance: age & developmentally appropriate, well-groomed, well- nourished - Musculoskeletal Gait: normal Station: relaxed Strength & Tone: rigid - Psychiatric Patient Orientation: Yes Person, Yes Time, Yes Place Level of alertness: Alert Behavior: calm, guarded Psychomotor activity: Normal Eye Contact: Maintains Eye Contact Mood Description: Depressed, Irritable Affect description: congruent with mood, full range Speech Volume: Normal Speech pattern: normal rate, normal rhythm, normal tone, fluent, spontaneous Language & Vocabulary: consistent with education Thought Process: Linear, Goal Oriented Thought Content: Yes Suicidal ideation, No Homicidal ideation, No Overt delusions, Yes Obsessive thoughts, Yes Phobic Perceptual Disturbances: No Auditory hallucinations, No Visual hallucinations Attention Span Ability: Capable of Focused Attention Memory Description: Grossly Intact Patient Reliability: Reliable Historian Fund of knowledge: Yes abstraction ability, Yes average, Yes aware of current events Intelligence Estimate: Average Judgment: Limited Insight: Minimal Results - Labs Labs: Laboratory Last Values WBC 8.0 K/mcL (4.3-11.1) 11/02/17 23:32 RBC 5.14 M/mcL (4.19-5.50) 11/02/17 23:32 Hgb 16.7 g/dL (12.9-16.9) 11/02/17 23:32 Hct 46.0 % (37.5-50.1) 11/02/17 23:32 MCV 89.5 fL (83.0-100.0) 11/02/17 23:32 MCH 32.5 pg (28.0-33.3) 11/02/17 23:32 MCHC 36.3 g/dL (31.6-35.5) H 11/02/17 23:32 RDW 12.2 % (11.5-14.5) 11/02/17 23:32 Plt Count 240 K/mcL (140-400) 11/02/17 23:32 MPV 9.8 fL (9.4-12.4) 11/02/17 23:32 Immature Gran % 0.4 % (0-4) 11/02/17 23:32 Seg Neutrophils % 51.4 % 11/02/17 23:32 Lymphocytes % 39.0 % 11/02/17 23:32 Monocytes % 4.6 % 11/02/17 23:32 Eosinophils % 3.7 % 11/02/17 23:32 Basophils % 0.9 % 11/02/17 23:32 Neutrophils # 4.1 K/mcL (1.6-8.9) 11/02/17 23:32 Lymphocytes # 3.1 K/mcL (0.6-4.6) 11/02/17 23:32 Monocytes # 0.4 K/mcL (0.0-1.3) 11/02/17 23:32 Eosinophils # 0.3 K/mcL (0.0-0.6) 11/02/17 23:32 Basophils # 0.1 K/mcL (0.0-0.2) 11/02/17 23:32 Sodium 140 mEq/L (136-145) 11/02/17 23:32 Potassium 4.1 mEq/L (3.5-5.1) 11/02/17 23:32 Chloride 106 mEq/L (98-107) 11/02/17 23:32 Carbon Dioxide 23 mEq/L (23-29) 11/02/17 23:32 BUN 12 mg/dL (6-20) 11/02/17 23:32 Creatinine 1.23 mg/dL (0.70-1.30) 11/02/17 23:32 Est GFR ( Amer) > 60 (> 60) 11/02/17 23:32 Est GFR (Non-Af Amer) > 60 (> 60) 11/02/17 23:32 BUN/Creatinine Ratio 10 (6-26) 11/02/17 23:32 Glucose 276 mg/dL (70-105) H 11/02/17 23:32 Calculated Osmolality 300 (280-300) 11/02/17 23:32 Calcium 8.9 mg/dL (8.6-10.3) 11/02/17 23:32 Urine Color Yellow (Yellow) 11/02/17 23:50 Urine Clarity Clear (Clear) 11/02/17 23:50 Urine pH 5.5 pH Units (5.0-8.0) 11/02/17 23:50 Ur Specific [place] 1.026 (1.010-1.025) H 11/02/17 23:50 Urine Protein Negative mg/dL (Neg-Trace) 11/02/17 23:50 Urine Glucose (UA) >=1000 mg/dL (Normal) H 11/02/17 23:50 Urine Ketones 15 mg/dL (Negative) H 11/02/17 23:50 Urine Blood Negative (Negative) 11/02/17 23:50 Urine Nitrite Negative (Negative) 11/02/17 23:50 Urine Bilirubin Negative (Negative) 11/02/17 23:50 Urine Urobilinogen Normal mg/dL (Normal) 11/02/17 23:50 Ur Leukocyte Esterase Negative (Negative) 11/02/17 23:50 Salicylates < 2.5 mg/dL (15.0-30.0) L 11/02/17 23:32 Urine Opiates Screen Negative ng/mL (Dxdimv=360) 11/02/17 23:46 Acetaminophen < 10 mcg/mL (10-20) L 11/02/17 23:32 Ur Barbiturates Screen Negative ng/mL (Sofjbt=667) 11/02/17 23:46 Ur Phencyclidine Scrn Negative ng/mL (Cutoff=25) 11/02/17 23:46 Ur Amphetamines Screen Negative ng/mL (Tqdomo=4060) 11/02/17 23:46 U Benzodiazepines Scrn Negative ng/mL (Nyfgmi=302) 11/02/17 23:46 Urine Cocaine Screen Negative ng/mL (Cutoff= 300) 11/02/17 23:46 U Marijuana (THC) Screen Negative ng/mL (Cutoff = 50) 11/02/17 23:46 Ur Drug Screen Interp See Below 11/02/17 23:46 Ethyl Alcohol 45 mg/dL (Less than 10) H 11/03/17 05:52 Assessment and Plan (1) Major depressive disorder, recurrent severe without psychotic features Current visit: Yes Status: Acute Plan: Admit inpatient for safety and stabilization, Close observation, Suicide Precautions per unit protocol, Encourage participation in unit milieu, Group Therapy, Secure weapons Risks, benefits, side effects, alternatives discussed w/pt: Yes Patient agreeable to treatment: Yes Plans for Post Hospital Care: Home Estimated Length of Stay (Days): 5 (2) Uncomplicated alcohol abuse Current visit: Yes Status: Acute Plan: Admit inpatient for safety and stabilization, Encourage participation in unit milieu Risks, benefits, side effects, alternatives discussed w/pt: Yes Patient agreeable to treatment: Yes Plans for Post Hospital Care: Home (3) Suicidal ideation Current visit: Yes Status: Acute Plan: Admit inpatient for safety and stabilization, Encourage participation in unit milieu, Group Therapy, Monitor sleep, Secure weapons Risks, benefits, side effects, alternatives discussed w/pt: Yes Patient agreeable to treatment : Yes Plans for Post Hospital Care: Home
[2017-11-04 09:15] VITALS: BP 136/86
--- NOTE | 2017-11-04 11:47 | Discharge Summary ---
Date of Encounter: 11/04/17 Time of Encounter: 11:00 Diagnosis - Discharge Diagnosis (1) Major depressive disorder, recurrent severe without psychotic features Status: Acute (2) Uncomplicated alcohol abuse Status: Resolved (3) Suicidal ideation Status: Resolved Medications - Discharge Medications Prescriptions: Nortriptyline [Pamelor] 25 mg PO HS 30 Days #30 capsule Sertraline [Zoloft] 50 mg PO DAILY 30 Days #30 tablet Nortriptyline [Pamelor] 25 mg PO HS 30 Days #30 capsule 11/04/17 [Rx] Sertraline [Zoloft] 50 mg PO DAILY 30 Days #30 tablet 11/04/17 [Rx] 3 Allergy/AdvReac Type Severity Reaction Status Date / Time No Known Allergies Allergy Verified 11/02/17 23:05 Provider Date of admission: 11/03/17 15:19 Primary care physician: Ugo Pardo Discharging clinician: Mayo Romeo Psychiatry Exam - Constitutional Vitals: Temp Pulse Resp BP Pulse Ox 100.3 F H 73 20 136/86 95 11/04/17 09:00 11/04/17 09:00 11/04/17 09:00 11/04/17 09:00 11/03/17 20:00 General appearance: age & developmentally appropriate, well-groomed, well- nourished - Musculoskeletal Gait: normal Station: relaxed Strength & Tone: normal for patient - Psychiatric Patient Orientation: Yes Person, Yes Time, Yes Place Level of alertness: Alert Behavior: calm, cooperative Psychomotor activity: Normal Eye Contact: Maintains Eye Contact Mood Description: Euthymic/stable Affect description: congruent with mood, full range Speech Volume: Normal Speech pattern: normal rate, normal rhythm, normal tone, fluent, spontaneous Language & Vocabulary: consistent with education Thought Process: Linear, Goal Oriented Thought Content: No Suicidal ideation, No Homicidal ideation, No Overt delusions Perceptual Disturbances: No Auditory hallucinations, No Visual hallucinations Attention Span Ability: Capable of Focused Attention Memory Description: Grossly Intact Patient Reliability: Reliable Historian Fund of knowledge: Yes abstraction ability, Yes aware of current events Intelligence Estimate: Average Judgment: Fair Insight: Partial Hospital Course Hospital course: Mr. Taveras is a 42 year old male - Time Spent with Patient Total time spent providing and/or coordinating discharge services: Greater than 30 minutes Assessment and Plan - Patient/Caregiver Discharge Instructions Activity: resume usual activities as tolerated, return to school once cleared by outpatient provider Diet: regular diet - Follow up Plan Follow up with: Kerry and Rowan Lind [Outside] - 11/14/17 4:00 pm (The above appointment is with Yasmine Payne for mental health counseling. Please bring photo ID and insurance card.) Yovanny Umana CNP [Advanced Practice Nurse] - 11/27/17 4:20 pm (The above appointment is with Corinne Umana CNP a psychiatric provider. Please bring photo ID and insurance card to your appointment.) Manjeet Rice MD [Partnered Physician] - 11/20/17 7:45 am (The above appointment is with Dr Rice for primary care, medications. The office staff will be sending you a new patient packet to be completed and brought to your appointment. Also bring photo ID and insurance card. Arrive 15 minutes before your scheduled appointment.) Functional capacity at discharge: independent ambulation Overall status at discharge: Stable Disposition: Home, Self-Care Quality - Multiple Antipsychotics Patient discharged on 2 or more antipsychotic medications: No Procedures - Procedures Procedures: Medication Management, Crisis Stabilization, Supportive Therapy, Group Therapy, Psychoeducational Therapy
== END 2017-11-04 13:30 | disposition home or self-care (01) | DRG 885 ==
LOC: EMEROO 23:02 → INTOOBSV 11-03 07:43 → 1ANU 11-03 07:43
PROVIDERS: ADMIT Psychiatry & Neurology Forensic Psychiatry; ATTEND Psychiatry & Neurology Forensic Psychiatry